=== PATIENT | female | born 1995 | race Caucasian/White ===

== ENCOUNTER 2017-01-05 14:57 | Emergency (ER) | payer SELFPAY ==
[~2017-01-05] VITALS: Ht 154.9 cm; Wt 41.5 kg
[~2017-01-05 14:57] MED LIST: CORTIS10A RIGHT EAR
[2017-01-05 15:00] VITALS: BP 117/69; PULSE 110; RESP 15; TEMP 97.6; O2SAT 100
--- NOTE | 2017-01-05 15:14 | PD ---
Physical Exam Date Seen by Provider: Jan 05, 2017 Time Seen by Provider: 15:12 Narrative 21 yo female here sent by urgent care for right leg cellulitis. Was seen at urgent care for infection to right leg for a few days. Told to come here for IV antibiotics and labs. No other medical issues reported. Comes with paper from urgent care. Vitals stable in triage with exception of tachycardia. Awaiting bed placement. Data Data Last Documented VS Vital Signs Date Time Temp Pulse Resp B/P (MAP) Pulse Ox O2 Delivery O2 Flow Rate FiO2 01/05/17 15:00 97.6 110 15 117/69 (85) 100 Orders Orders Complete Blood Count With Diff (01/05/17 15:11) Basic Metabolic Panel (Bmp) (01/05/17 15:11) Lactic Acid (01/05/17 15:11) MDM Medical Record Reviewed: Yes Supervised Visit with JASON: Clarence Kumar Jan 05, 2017 15:14
--- NOTE | 2017-01-05 15:40 | PD ---
HPI Chief Complaint: Wound/Suture/Staple Re-Check Time Seen by Provider: 15:30 Travel History International Travel<30 days: No Contact w/Intl Traveler<30days: No Traveled to known affect area: No History of Present Illness HPI 21-year-old white female presents to the emergency department status post I&D of abscess right mid calf. She says she went to [place] for I&D and they sent her to us for further treatment. She has not received any antibiotics for this. She states that the lesion has been present for about 2-3 days and has increased in size. Also states there is pain in the area. She denies fevers, chills, chest pain, shortness of breath. She denies any medical history or chronic medication use. [facility] Past Medical History Tetanus Vaccination: Unknown ?: Not Social History Alcohol Use: No Tobacco Use: No Substance Use: No Allergies-Medications (Allergen,Severity, Reaction): Coded Allergies: No Known Allergies (Unverified , 01/05/17) Reported Meds & Prescriptions Reported Meds & Active Scripts Active Bactrim DS (Sulfamethoxazole-Trimethoprim) 800-160 Mg Tab 1 Tab PO BID Cortisporin Otic (Neomycin/Polymyxin/Hydrocortisone) 10 Ml Susp 3-5 Drop RIGHT EAR Q6 7 Days FOR 7 DAYS Review of Systems Except as stated in HPI: all other systems reviewed are Neg Physical Exam Narrative 21-year-old white female with an abscess on lower right leg. GENERAL: Well-nourished, well-developed patient. SKIN: right posterior mid-calf with 1cm round lesion with minimal bleeding, no exudate. There is 2 cm of induration with mild erythema surrounding wound with mild TTP upon palpation. No lymphangiopathic spread noted. HEAD: Normocephalic. EYES: No scleral icterus. No injection or drainage. NECK: Supple, trachea midline. No JVD CARDIOVASCULAR: Regular rate and rhythm without murmurs, gallops, or rubs. RESPIRATORY: Breath sounds equal bilaterally. No accessory muscle use. MUSCULOSKELETAL: No cyanosis, or edema. BACK: Nontender without obvious deformity. No CVA tenderness. Data Data Last Documented VS Vital Signs Date Time Temp Pulse Resp B/P (MAP) Pulse Ox O2 Delivery O2 Flow Rate FiO2 01/05/17 16:56 101 113/66 (82) 100 01/05/17 16:22 Nasal Cannula 2.00 01/05/17 15:00 97.6 15 Orders Orders Wound Culture And Gram Stain (01/05/17 15:33) Sulfamet-Trimeth Ds 800-160 Mg (Bactrim (01/05/17 15:45) MDM Medical Decision Making Medical Screen Exam Complete: Yes Emergency Medical Condition: Yes Differential Diagnosis Right leg abscess versus insect bite versus cellulitis Narrative Course 21-year-old white female here for abscess to posterior right leg for 2-3 days. She says she went to [place] for treatment, they performed an I&D, and sent her to the emergency department for further treatment. She is here with her family. She does have full range of motion of her leg and can walk normally. She denies fevers, chills, shortness of breath, chest pain, abdominal pain. The abscess is approximately 1 cm round, with minimal bleeding, no exudate. The surrounding induration is approximately 2 cm with mild erythema. Unable to express exudate upon manipulation. No lymphangiopathic spread. Patient is a healthy 21-year-old white female and so we'll treat with outpatient antibiotics. Patient and family advised on course and when to return to the hospital. Diagnosis Primary Impression: Abscess of leg, right Referrals: Primary Care Physician Patient Instructions: Abscess Incision and Drainage (GEN), General Instructions Additional Instructions: Clean twice daily with clean water May use topical antibiotics Continue antibiotics until gone Follow up with Primary Care or return to the emergency department if wound worsens or persists. Scripts Sulfamethoxazole-Trimethoprim (Bactrim DS) 800-160 Mg Tab 1 TAB PO BID for Infection, #20 TAB 0 Refills Prov: Dhara Sutherland MD 01/05/17 Disposition: 01 DISCHARGE HOME Condition: Stable Beatriz Mccray Jan 05, 2017 15:40
[2017-01-05] MEDS ORDERED: SULFAMETHOXAZOLE-TRIMETHOPRIM DS 800-160 MG TAB PO ONE (15:45)
[2017-01-05] MEDS ORDERED: BACT800T5 PO ×2 (15:48→15:52)
[2017-01-05 16:22] VITALS: PULSE 107; O2SAT 100
[2017-01-05 16:56] VITALS: BP 113/66
== END 2017-01-05 16:57 | disposition home or self-care (01) ==
LOC: NEPC 14:57
DX: L02.415 Cutaneous abscess of right lower limb (principal); B95.62 Methicillin resistant Staphylococcus aureus infection as the cause of diseases classified elsewhere
CPT/HCPCS: 86403; 87070; 87186; 87205; 99283

== ENCOUNTER 2017-02-26 12:14 | Inpatient (IN) | payer MEDICAID ==
[~2017-02-26] VITALS: Ht 154.9 cm; Wt 41.9 kg
[2017-02-26] VITALS (7 sets, daily range): BP systolic 96–128; BP diastolic 50–70; PULSE 115–138; RESP 16–21; TEMP 98.2–102.9; O2SAT 99–100
[~2017-02-26 12:14] MED LIST changes: +BACT800T5 PO
--- NOTE | 2017-02-26 12:33 | PD ---
HPI Chief Complaint: Fever Time Seen by Provider: 12:32 Travel History International Travel<30 days: No Contact w/Intl Traveler<30days: No Traveled to known affect area: No History of Present Illness HPI 21 YO F presents to the ED via EMS for evaluation of a 3 day history of "not feeling well." On presentation the patient states that she has a sore in her groin x 4 days that is worsening and causing pain in her legs. She also states that she's been feeling feverish. She denies headache, dizziness, chest pain, palpitations, shortness of breath, cough, abdominal pain, dysuria. She denies risk of , states her LMP was "a few weeks ago." She denies alcohol or illicit drug use. She was seen at a urgent care where she was febrile and tachycardic. She was administered Tylenol and sent to the ED. [facility] Social History Alcohol Use: No Tobacco Use: No Substance Use: No Allergies-Medications (Allergen,Severity, Reaction): Coded Allergies: No Known Allergies (Unverified Allergy, Unknown, 02/26/17) Reported Meds & Prescriptions Reported Meds & Active Scripts Active Bactrim DS (Sulfamethoxazole-Trimethoprim) 800-160 Mg Tab 1 Tab PO BID Review of Systems Except as stated in HPI: all other systems reviewed are Neg Physical Exam Narrative GENERAL: Well-nourished, well-developed white female in no acute distress. SKIN: Focused skin assessment warm/dry.SKIN: There is an indurated area in the right groin which measures about 4 cm in diameter. It is fluctuant but there is no pointing or drainage. There is a zone of inflammation around it but no lymphangitis. HEAD: Normocephalic. EYES: No scleral icterus. No injection or drainage. NECK: Supple, trachea midline. No JVD or lymphadenopathy. CARDIOVASCULAR: Regular rate and rhythm without murmurs, gallops, or rubs. RESPIRATORY: Breath sounds clear and equal bilaterally. No accessory muscle use. GASTROINTESTINAL: Abdomen soft, non-tender, nondistended. Active bowel sounds. MUSCULOSKELETAL: No cyanosis, or edema. BACK: Nontender without obvious deformity. No CVA tenderness. Data Data Last Documented VS Vital Signs Date Time Temp Pulse Resp B/P (MAP) Pulse Ox O2 Delivery O2 Flow Rate FiO2 02/26/17 12:33 99.4 137 21 128/70 (89) 100 Room Air Orders Orders Complete Blood Count With Diff (02/26/17 12:19) Comprehensive Metabolic Panel (02/26/17 12:19) Urinalysis - C+S If Indicated (02/26/17 12:19) Lactic Acid Sepsis Protocol (02/26/17 12:19) Chest, Single Ap (02/26/17 12:19) Blood Culture (02/26/17 12:19) Ed Urine Pregnancytest Poc (02/26/17 12:19) Electrocardiogram (02/26/17 ) Abscess Culture And Gram Stain (02/26/17 12:49) Sodium Chlor 0.9% 1000 Ml Inj (Ns 1000 M (02/26/17 13:00) Piperacil-Tazo 4.5 Gm Premix (Zosyn 4.5 (02/26/17 13:15) Vancomycin Inj (Vancomycin Inj) (02/26/17 13:15) Lidocaine 1% Inj (50 Ml) (Xylocaine 1% I (02/26/17 13:40) Lidocaine 1% Inj (50 Ml) (Xylocaine 1% I (02/26/17 13:45) Urine Culture (02/26/17 13:45) Sodium Chlor 0.9% 1000 Ml Inj (Ns 1000 M (02/26/17 15:00) Labs Laboratory Tests Test 02/26/17 12:35 02/26/17 13:45 White Blood Count 16.0 TH/MM3 Red Blood Count 4.45 MIL/MM3 Hemoglobin 11.8 GM/DL Hematocrit 36.2 % Mean Corpuscular Volume 81.3 FL Mean Corpuscular Hemoglobin 26.5 PG Mean Corpuscular Hemoglobin Concent 32.6 % Red Cell Distribution Width 14.8 % Platelet Count 175 TH/MM3 Mean Platelet Volume 7.9 FL Neutrophils (%) (Auto) 97.4 % Lymphocytes (%) (Auto) 0.6 % Monocytes (%) (Auto) 1.6 % Eosinophils (%) (Auto) 0.2 % Basophils (%) (Auto) 0.2 % Neutrophils # (Auto) 15.6 TH/MM3 Lymphocytes # (Auto) 0.1 TH/MM3 Monocytes # (Auto) 0.3 TH/MM3 Eosinophils # (Auto) 0.0 TH/MM3 Basophils # (Auto) 0.0 TH/MM3 CBC Comment DIFF FINAL Differential Comment Blood Urea Nitrogen 12 MG/DL Creatinine 0.73 MG/DL Random Glucose 93 MG/DL Total Protein 6.4 GM/DL Albumin 3.3 GM/DL Calcium Level 8.1 MG/DL Alkaline Phosphatase 56 U/L Aspartate Amino Transf (AST/SGOT) 23 U/L Alanine Aminotransferase (ALT/SGPT) 13 U/L Total Bilirubin 0.7 MG/DL Sodium Level 134 MEQ/L Potassium Level 3.6 MEQ/L Chloride Level 104 MEQ/L Carbon Dioxide Level 17.0 MEQ/L Anion Gap 13 MEQ/L Estimat Glomerular Filtration Rate 103 ML/MIN Lactic Acid Level 2.2 mmol/L Urine Color YELLOW Urine Turbidity HAZY Urine pH 6.0 Urine Specific [place] 1.013 Urine Protein 30 mg/dL Urine Glucose (UA) NEG mg/dL Urine Ketones 40 mg/dL Urine Occult Blood MOD Urine Nitrite NEG Urine Bilirubin NEG Urine Urobilinogen LESS THAN 2.0 MG/DL Urine Leukocyte Esterase LARGE Urine RBC 15 /hpf Urine WBC /hpf Urine WBC Clumps FEW Urine Squamous Epithelial Cells 7 /hpf Urine Bacteria OCC /hpf Urine Mucus FEW /lpf Microscopic Urinalysis Comment CULTURE INDICATED MDM Medical Decision Making Medical Screen Exam Complete: Yes Emergency Medical Condition: Yes Differential Diagnosis Abscess versus cellulitis versus sepsis versus other Narrative Course 21 YO F presents to the ED via EMS for evaluation of a 3 day history of "not feeling well." On presentation the patient states that she has a sore x 4 days in her groin that is worsening and causing pain in her legs. She also states that she's been feeling feverish. She denies risk of , states her LMP was "a few weeks ago." She denies alcohol or illicit drug use. She was seen at a urgent care where she was febrile and tachycardic. She was administered Tylenol and sent to the ED. on arrival patient's heart rate 136, temp 99.4 orally. The patient has an abscess in the right groin but the exam is otherwise unremarkable. IV was established. Patient was administered a liter normal saline. Blood cultures were obtained. I&D of the abscess was performed. Please see my procedure note for details. 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 IV vancomycin and Zosyn was initiated. EKG: Rate 136. Normal axis. No ST changes. Reviewed by Dr. Leroy. CXR: No acute disease per radiology read. CBC: WBC 16.0 with left shift. CMP: Calcium 8.1. Lactic acid 2.2. UA: Hazy, large leukocyte Estrace, wbc's, few clumps, occasional bacteria. Culture pending. On recheck patient is sitting up in bed, eating. Heart rate continues to be in the 130s. A second fluid bolus was ordered. The patient meet sepsis criteria and will be admitted to the medicine service. She is agreeable to this plan. I spoke with Dr Winston who agrees to accept the patient to the medicine service under Dr. Swain. Please see medicine notes for disposition. Procedures Procedure Narrative INCISION AND DRAINAGE OF ABSCESS: The area was prepped and was sterilely draped. A subcutaneous wheal of 1% Xylocaine with a total number 4mL was used to anesthetize the area properly. A number 11 scalpel was used to make a 1.25- cm incision across the area of the abscess. Cultures were obtained. The abscess was drained, complex loculations were broken down and the wounds was irrigated with normal saline. Quarter inch iodoform packing was placed in the wound. Sterile dressing applied. Patient advised to have packing removed in two days. Sepsis Criteria SIRS Criteria (2 or more): Heart rate over 90, WBC > 18858, < 4000 or > 10% bands Sepsis Criteria (SIRS+source): Infect source susp/known Chloé Sawant Feb 26, 2017 12:33
--- NOTE | 2017-02-26 12:50 | RADRPT ---
EXAM DATE/TIME: 02/26/2017 12:40 [place] COMPARISON: No previous studies available for comparison. INDICATIONS : Fever, short of breath MEDICAL HISTORY : possible infection right groin SURGICAL HISTORY : oral surgery ENCOUNTER: Initial ACUITY: 2 days PAIN SCORE: 0/10 LOCATION: Bilateral chest FINDINGS: A single view of the chest demonstrates the lungs to be symmetrically aerated without evidence of mas s, infiltrate or effusion. There is hyperaeration of the lung gallo. The cardiomediastinal contours are unremarkable. Osseous structures are intact. CONCLUSION: No acute disease. Suraj Murray MD on February 26, 2017 at 12:48 Board Certified Radiologist. This report was verified electronically.
[2017-02-26] MEDS ORDERED: LIDOCAINE HCL 1% 30 ML VIAL INFIL ONE (13:00)
[2017-02-26] MEDS ORDERED: SODIUM CHLOR 0.9% 1000 ML INJ 1,000 ML IV ONE ×2 (13:00→15:00)
[2017-02-26] MEDS ORDERED: ACETAMINOPHEN 500 MG CPLT PO ONE (13:00)
[2017-02-26 13:01] LABS: AUTOMATED NEUTROPHIL # 15.6 TH/MM3 (1.8-7.7); BASOPHIL % 0.2 % (0.0-2.0); EOSINOPHIL % 0.2 % (0.0-4.0); HEMATOCRIT 36.2 % (35.0-46.0); HEMO FLAGS DIFF FINAL; LYMPH % 0.6 % (9.0-44.0); LYMPHOCYTE # 0.1 TH/MM3 (1.0-4.8); MEAN CELL VOLUME 81.3 FL (80.0-100.0); MEAN CORPUSCULAR HEMOGLOBIN 26.5 PG (27.0-34.0); MEAN CORPUSCULAR HGB CONC 32.6 % (32.0-36.0); MONO % 1.6 % (0.0-8.0); NEUT % 97.4 % (16.0-70.0); PLATELET COUNT 175 TH/MM3 (150-450); RED BLOOD COUNT 4.45 MIL/MM3 (4.00-5.30); RED CELL DISTRIBUTION WIDTH 14.8 % (11.6-17.2)
[2017-02-26] MEDS ORDERED: VANCOMYCIN INJ 800 MG in SODIUM CHLOR 0.9% 250 ML INJ 250 ML IV STA (13:15)
[2017-02-26] MEDS ORDERED: PIPERACIL-TAZO 4.5 GM PREMIX 100 ML IV STA (13:15)
[2017-02-26 13:23] LABS: ALT (GPT) 13 U/L (9-42)
[2017-02-26 13:25] LABS: ALKALINE PHOSPHATASE 56 U/L (45-117); TOTAL BILIRUBIN ADULT 0.7 MG/DL (0.2-1.0)
[2017-02-26 13:27] LABS: ANION GAP 13 MEQ/L (5-15); AST (GOT) 23 U/L (16-38); BLOOD UREA NITROGEN 12 MG/DL (7-18); CHLORIDE 104 MEQ/L (98-107); GLOMERULAR FILTRATION RATE 103 ML/MIN (>89); SODIUM (NA) 134 MEQ/L (136-145)
[2017-02-26 13:29] LABS: POTASSIUM 3.6 MEQ/L (3.5-5.1)
[2017-02-26] MEDS ORDERED: LIDOCAINE HCL 1% 50 ML VIAL ONE (13:40)
[2017-02-26] MEDS ORDERED: LIDOCAINE HCL 1% 50 ML VIAL INFIL ONE (13:45)
[2017-02-26 14:19] LABS: BACTERIA, URINE OCC /hpf; BLOOD, URINE MOD (NEG); COMMENT (UR) CULTURE INDICATED; CULTURE IF INDICATED CULTURE INDICATED; GLUCOSE,URINE NEG (NEG); KETONE, URINE 40 mg/dL (NEG); MUCUS URINE FEW /lpf (OCC); NITRITE,URINE NEG (NEG); SQUAMOUS EPITHELIAL CELL URINE 7 /hpf (0-5); URINE COLOR YELLOW (YELLW/STRAW)
[2017-02-26 14:50] LABS: LACTIC ACID GHOST NOT REPORTABLE
[2017-02-26] MEDS: SODIUM CHLOR 0.9% 1000 ML INJ 1,000 ML IV SCH (15:12)
[2017-02-26] MEDS ORDERED: ONDANSETRON HCL 4 MG/2 ML VIAL IVP PRN (15:15)
[2017-02-26] MEDS ORDERED: ACETAMINOPHEN 325 MG TAB PO PRN (15:15)
[2017-02-26] MEDS ORDERED: BISACODYL 10 MG SUPP RECTAL PRN (15:15)
[2017-02-26] MEDS ORDERED: LACTULOSE SYRUP 20 GM/30 ML CUP PO PRN (15:15)
[2017-02-26] MEDS ORDERED: SENNOSIDES 8.6 MG TAB PO PRN (15:15)
[2017-02-26] MEDS ORDERED: NALOXONE HCL 0.4 MG/ML AMP IV PUSH PRN (15:15)
[2017-02-26] MEDS ORDERED: ZOLPIDEM TARTRATE 5 MG TAB PO PRN (15:15)
[2017-02-26] MEDS ORDERED: SODIUM CHLORIDE 0.9% FLUSH 10 ML FLUSH IV FLUSH PRN (15:15)
[2017-02-26] MEDS ORDERED: MAGNESIUM HYDROXIDE SUSP 30 ML CUP PO PRN (15:15)
--- NOTE | 2017-02-26 15:15 | HHI.HP ---
[facility] Service Family Medicine Primary Care Physician No Primary Care Physician Admission Diagnosis Sepsis, right groin abscess, UTI Diagnoses: International Travel<30 Days: No Contact w/Intl Traveler<30days: No Known Affected Area: No History of Present Illness 21-year-old female with no major past medical history presenting with right groin pain and skin swelling for the last 4 days. She went to urgent care for this problem a couple days ago and was diagnosed with an ingrown hair follicle ( she had shaved) plus cellulitis and was given Bactrim. However, the swelling got worse, and she also developed fever. This prompted her to come back to the ER and seek care. She denies dysuria, urinary frequency. Endorses vaginal discharge which she describes as whitish in color, denies odor or itching. Endorses dyspareunia. Last sexual activity 2 weeks ago. Sexually active with one partner, male, uses condoms consistently. (Kosta Winston MD R2) Review of Systems Constitutional: COMPLAINS OF: Fever, Chills, DENIES: Fatigue Eyes: DENIES: Eye pain Ears, nose, mouth, throat: DENIES: Ear Pain, Sinus Pain, Odynophagia Respiratory: DENIES: Cough, Wheezing, Shortness of breath Cardiovascular: DENIES: Chest pain, Palpitations, Dyspnea on Exertion Gastrointestinal: DENIES: Abdominal pain, Black stools, Bloody stools, Diarrhea , Nausea, Vomiting Genitourinary: COMPLAINS OF: Dyspareunia, Vaginal discharge, DENIES: Abnormal vaginal bleeding, Urinary frequency, Urgency, Hematuria, Dysuria Musculoskeletal: DENIES: Joint pain, Muscle aches Integumentary: COMPLAINS OF: Rash, DENIES: Pruritus Hematologic/lymphatic: DENIES: Bruising, Lymphadenopathy Immunologic/allergic: DENIES: Urticaria Neurologic: DENIES: Headache, Localized weakness, Paresthesias Psychiatric: DENIES: Anxiety, Depression (Kosta Winston MD R2) Past Family Social History Past Medical History None Past Surgical History None Reported Medications Takes no medications (Kosta Winston MD R2) Allergies: Coded Allergies: No Known Allergies (Unverified Allergy, Unknown, 02/26/17) Family History MGM has heart disease. Parents healthy. Social History Never smoker, does not drink, does not do drugs. See [facility] for sexual history. (Kosta Winston MD R2) Physical Exam Vital Signs Vital Signs Date Time Temp Pulse Resp B/P (MAP) Pulse Ox O2 Delivery O2 Flow Rate FiO2 02/26/17 12:33 99.4 137 21 128/70 (89) 100 Room Air 02/26/17 12:33 137 21 100 Room Air 02/26/17 12:26 99.2 136 21 128/70 (89) 100 Physical Exam GENERAL: Well-developed, well-nourished young adult white female sitting up in bed in no acute distress SKIN: No rashes, ecchymoses or lesions. Cool and dry. R groin with ~ 1cm wound from I&D packed with iodoform gauze. Mild erythema surrounding. Non-tender. No other areas of fluctuance, no purulent drainage. HEAD: NC/AT EYES: PERRL. EOMI. No conjunctival injection or drainage. ENT: MMM, OP without erythema, tonsillar swelling, or exudate. NECK: Supple, no lymphadenopathy. CARDIOVASCULAR: Tachycardic, regular rhythm. Normal S1/S2. No MRG RESPIRATORY: CTAB. No crackles or wheezes. GASTROINTESTINAL: Abdomen soft, non-distended, non-tender. No hepato- splenomegaly or palpable masses. GENITOURINARY: Exam performed with telemarketing sales representative present. Normal external genitalia. Cervix visualized with speculum and appearing mildly erythematous with some scant purulent discharge coming out of the os. No friability. No cervical motion tenderness. MUSCULOSKELETAL: Extremities without clubbing, cyanosis, or edema. No CVA tenderness. NEUROLOGICAL: Awake and alert. Cranial nerves II through XII grossly intact. Moves all extremities without difficulty. Normal speech. Laboratory Laboratory Tests Test 02/26/17 12:35 02/26/17 13:45 White Blood Count 16.0 Red Blood Count 4.45 Hemoglobin 11.8 Hematocrit 36.2 Mean Corpuscular Volume 81.3 Mean Corpuscular Hemoglobin 26.5 Mean Corpuscular Hemoglobin Concent 32.6 Red Cell Distribution Width 14.8 Platelet Count 175 Mean Platelet Volume 7.9 Neutrophils (%) (Auto) 97.4 Lymphocytes (%) (Auto) 0.6 Monocytes (%) (Auto) 1.6 Eosinophils (%) (Auto) 0.2 Basophils (%) (Auto) 0.2 Neutrophils # (Auto) 15.6 Lymphocytes # (Auto) 0.1 Monocytes # (Auto) 0.3 Eosinophils # (Auto) 0.0 Basophils # (Auto) 0.0 CBC Comment DIFF FINAL Differential Comment Blood Urea Nitrogen 12 Creatinine 0.73 Random Glucose 93 Total Protein 6.4 Albumin 3.3 Calcium Level 8.1 Alkaline Phosphatase 56 Aspartate Amino Transf (AST/SGOT) 23 Alanine Aminotransferase (ALT/SGPT) 13 Total Bilirubin 0.7 Sodium Level 134 Potassium Level 3.6 Chloride Level 104 Carbon Dioxide Level 17.0 Anion Gap 13 Estimat Glomerular Filtration Rate 103 Lactic Acid Level 2.2 Urine Color YELLOW Urine Turbidity HAZY Urine pH 6.0 Urine Specific [place] 1.013 Urine Protein 30 Urine Glucose (UA) NEG Urine Ketones 40 Urine Occult Blood MOD Urine Nitrite NEG Urine Bilirubin NEG Urine Urobilinogen LESS THAN 2.0 Urine Leukocyte Esterase LARGE Urine RBC 15 Urine WBC Urine WBC Clumps FEW Urine Squamous Epithelial Cells 7 Urine Bacteria OCC Urine Mucus FEW Microscopic Urinalysis Comment CULTURE INDICATED Date/Time Source Procedure Growth Status 02/26/17 12:35 Blood Peripheral Aerobic Blood Culture Pending Received 02/26/17 12:35 Blood Peripheral Anaerobic Blood Culture Pending Received 02/26/17 13:45 Urine Clean Catch Urine Culture Pending Received 02/26/17 14:00 Abscess Groin Gram Stain Pending Received 02/26/17 14:00 Abscess Groin Wound Culture Pending Received (Kosta Winston MD R2) Result Diagram: 02/26/17 1235 02/26/17 1235 Imaging Last Impressions Chest X-Ray 02/26/17 1219 Signed Impressions: Service Date/Time: February 12:40 - CONCLUSION: No acute disease. Suraj Murray MD (Kosta Winston MD R2) Caprini VTE Risk Assessment Caprini VTE Risk Assessment: No/Low Risk (score <= 1) Caprini Risk Assessment Model Point Value = 1 Point Value = 2 Point Value = 3 Point Value = 5 Age 41-60 Minor surgery BMI > 25 kg/m2 Swollen legs Varicose veins or History of unexplained or recurrent spontaneous Oral contraceptives or hormone replacement Sepsis (< 1 month) Serious lung disease, including pneumonia (< 1 month) Abnormal pulmonary function Acute myocardial infarction Congestive heart failure (< 1 month) History of inflammatory bowel disease Medical patient at bed rest Age 61-74 Arthroscopic surgery Major open surgery (> 45 min) Laparoscopic surgery (> 45 min) Malignancy Confined to bed (> 72 hours) Immobilizing plaster cast Central venous access Age >= 75 History of VTE Family history of VTE Factor V Leiden Prothrombin [id number] Lupus anticoagulant Anticardiolipin antibodies Elevated serum homocysteine Heparin-induced thrombocytopenia Other congenital or acquired thrombophilia Stroke (< 1 month) Elective arthroplasty Hip, pelvis, or leg fracture Acute spinal cord injury (< 1 month) Prophylaxis Regimen Total Risk Factor Score Risk Level Prophylaxis Regimen 0-1 Low Early ambulation 2 Moderate Order ONE of the following: *Sequential Compression Device (SCD) *Heparin 5000 units SQ BID 3-4 Higher Order ONE of the following medications: *Heparin 5000 units SQ TID *Enoxaparin/Lovenox 40 mg SQ daily (WT < 150 kg, CrCl > 30 mL/min) *Enoxaparin/Lovenox 30 mg SQ daily (WT < 150 kg, CrCl > 10-29 mL/min) *Enoxaparin/Lovenox 30 mg SQ BID (WT < 150 kg, CrCl > 30 mL/min) AND/OR *Sequential Compression Device (SCD) 5 or more Highest Order ONE of the following medications: *Heparin 5000 units SQ TID (Preferred with Epidurals) *Enoxaparin/Lovenox 40 mg SQ daily (WT < 150 kg, CrCl > 30 mL/min) *Enoxaparin/Lovenox 30 mg SQ daily (WT < 150 kg, CrCl > 10-29 mL/min) *Enoxaparin/Lovenox 30 mg SQ BID (WT < 150 kg, CrCl > 30 mL/min) AND *Sequential Compression Device (SCD) (Kosta Winston MD R2) Assessment and Plan Assessment and Plan Previously healthy sexually active 21 yo female presenting with: (Kosta Winston MD R2) Attending Attestation THIS CASE WAS DISCUSSED WITH THE RESIDENT PHYSICIANS. I HAVE REVIEWED THE RECORD AND AGREE WITH THE ABOVE NOTE AND PLAN OF CARE WAS DISCUSSED. I HAVE AUTHORIZED THE ORDER FOR ADMISSION TO AN IN-PATIENT STATUS. (Mag Jones MD) Problem List: (1) Sepsis ICD Codes: A41.9 - Sepsis, unspecified organism Plan: Leukocytosis plus tachycardia and fever insetting of known right groin infection Right groin abscess status post incision and drainage Urinalysis also suggestive of urinary tract infection Initial lactic acid 2.2 - Admit to inpatient - S/P normal saline 1000 ML bolus - Given vancomycin and Zosyn in the emergency department - Continue vancomycin for abscess coverage, Rocephin for UTI coverage - Follow up urine, wound culture - Follow up blood culture - Check gonorrhea and chlamydia, wet prep as below - Repeat lactic acid - Normal saline at 100 mL/h - Tylenol as needed for pain or fever (2) Abscess of right groin ICD Codes: L02.214 - Cutaneous abscess of groin Plan: See above plan (3) UTI (urinary tract infection) ICD Codes: N39.0 - Urinary tract infection, site not specified Plan: Currently asymptomatic, but urinalysis with innumerable white blood cells and several clumps - See above plan for sepsis (4) Vaginal discharge ICD Codes: N89.8 - Other specified noninflammatory disorders of vagina Plan: Pelvic exam suggestive of possible cervicitis; patient is sexually active with one male partner - Check wet prep, gonorrhea and chlamydia swab - Check HIV status (5) FEN/PPX Plan: Fluids: As above Electrolytes: Monitor and replace PRN Nutrition: Diet regular DVT prophylaxis: None indicated this patient is low risk CODE STATUS: Full code (Kosta Winston MD R2) Physician Certification 2 Midnight Certification Type: Admission for Inpatient Services Order for Inpatient Services The services are ordered in accordance with Medicare regulations or non- Medicare payer requirements, as applicable. In the case of services not specified as inpatient-only, they are appropriately provided as inpatient services in accordance with the 2-midnight benchmark. Estimated LOS (days): 2 days is the estimated time the patient will need to remain in the hospital, assuming treatment plan goals are met and no additional complications. Post-Hospital Plan: Home (Kosta Winston MD R2) 2 Midnight Certification Type: Admission for Inpatient Services Post-Hospital Plan: Home (Mag Jones MD) Problem Qualifiers (1) Sepsis: Qualified Codes: A41.9 - Sepsis, unspecified organism Kosta Winston MD R2 Feb 26, 2017 15:15 Mag Jones MD Feb 27, 2017 08:23
[2017-02-26 19:38] LABS: CHLAMYDIA PCR NOT DETECTED (NOT DETECT); NEISSERIA PCR NOT DETECTED (NOT DETECT)
[2017-02-26] MEDS: DOCUSATE SODIUM 50 MG/SENNA 8.6 MG TAB PO SCH (19:46)
[2017-02-26] MEDS: SODIUM CHLORIDE 0.9% FLUSH 10 ML FLUSH IV FLUSH SCH (19:46)
[2017-02-26] MEDS ORDERED: Vancomycin Consult Pharmacy 1 EA OTHER SCH (20:30)
[2017-02-27] VITALS (7 sets, daily range): BP systolic 105–127; BP diastolic 50–79; PULSE 75–138; RESP 16–20; TEMP 98–99.9; O2SAT 98–100
[2017-02-27] MEDS: SODIUM CHLOR 0.9% 1000 ML INJ 1,000 ML IV SCH ×2 (01:12→12:19)
[2017-02-27] MEDS: cefTRIAXone INJ 2,000 MG in SODIUM CHLORIDE 0.9% INJ 100 ML IV SCH (05:00)
[2017-02-27] MEDS: VANCOMYCIN INJ 700 MG in SODIUM CHLOR 0.9% 250 ML INJ 250 ML IV SCH ×2 (05:39→16:11)
[2017-02-27 06:10] LABS: AUTOMATED NEUTROPHIL # 12.7 TH/MM3 (1.8-7.7); BASOPHIL % 0.1 % (0.0-2.0); EOSINOPHIL # 0.4 TH/MM3 (0-0.4); EOSINOPHIL % 2.8 % (0.0-4.0); HEMATOCRIT 30.8 % (35.0-46.0); HEMO FLAGS DIFF FINAL; LYMPH % 1.7 % (9.0-44.0); LYMPHOCYTE # 0.2 TH/MM3 (1.0-4.8); MEAN CELL VOLUME 81.4 FL (80.0-100.0); MEAN CORPUSCULAR HGB CONC 33.1 % (32.0-36.0); MONO % 3.7 % (0.0-8.0); NEUT % 91.7 % (16.0-70.0); PLATELET COUNT 155 TH/MM3 (150-450); RED BLOOD COUNT 3.78 MIL/MM3 (4.00-5.30); RED CELL DISTRIBUTION WIDTH 14.8 % (11.6-17.2); WHITE BLOOD COUNT 13.9 TH/MM3 (4.0-11.0)
[2017-02-27 06:39] LABS: BICARBONATE 19.7 MEQ/L (21.0-32.0); POTASSIUM 3.1 MEQ/L (3.5-5.1)
[2017-02-27 06:53] LABS: CALCIUM-PROTEIN CORRECTED 8.3 MG/DL (8.5-10.1)
[2017-02-27] MEDS: DOCUSATE SODIUM 50 MG/SENNA 8.6 MG TAB PO SCH ×2 (07:48→21:21)
[2017-02-27] MEDS: SODIUM CHLORIDE 0.9% FLUSH 10 ML FLUSH IV FLUSH SCH ×2 (07:48→21:21)
--- NOTE | 2017-02-27 12:17 | HHI.FPPN ---
Problem Problem List: (1) Sepsis (2) Abscess of right groin (3) Bacterial vaginosis (4) UTI (urinary tract infection) Subjective Subjective 21 year old woman was admitted through the ED for sepsis likely stemming from the right groin abscess. She was having increased in pain and swelling in the area and not feeling well prior to admission. In the ED this lesion was incised and drained and the wound was packed. Cultures are pending. The patient this morning feels better. She states she has limited pain in that area and she has been noticing it is draining onto the bandage. She states she overall is feeling better. She denies fevers/chills/SOB or CP Please see the resident Hand P for additional PMH/PSH/FH/SOCIAL history that was reviewed. ROS negative except as above Hospital Objective Objective Last Impressions Chest X-Ray 02/26/17 1219 Signed Impressions: Service Date/Time: , February 26, 2017 12:40 - CONCLUSION: No acute disease. Suraj Murray MD Laboratory Tests - Abnormals Test 02/26/17 12:35 02/26/17 13:45 02/26/17 16:15 02/26/17 19:44 White Blood Count 16.0 TH/MM3 Mean Corpuscular Hemoglobin 26.5 PG Neutrophils (%) (Auto) 97.4 % Lymphocytes (%) (Auto) 0.6 % Neutrophils # (Auto) 15.6 TH/MM3 Lymphocytes # (Auto) 0.1 TH/MM3 Albumin 3.3 GM/DL Calcium Level 8.1 MG/DL Sodium Level 134 MEQ/L Carbon Dioxide Level 17.0 MEQ/L Lactic Acid Level 2.2 mmol/L Urine Turbidity HAZY Urine Protein 30 mg/dL Urine Ketones 40 mg/dL Urine Occult Blood MOD Urine Leukocyte Esterase LARGE Urine RBC 15 /hpf Urine WBC Clumps FEW Urine Bacteria OCC /hpf Urine Mucus FEW /lpf Clue Cells (Wet Prep) PRESENT Test 02/26/17 20:52 02/27/17 04:08 Lactic Acid Level 2.6 mmol/L White Blood Count 13.9 TH/MM3 Red Blood Count 3.78 MIL/MM3 Hemoglobin 10.2 GM/DL Hematocrit 30.8 % Neutrophils (%) (Auto) 91.7 % Lymphocytes (%) (Auto) 1.7 % Neutrophils # (Auto) 12.7 TH/MM3 Lymphocytes # (Auto) 0.2 TH/MM3 Random Glucose 116 MG/DL Total Protein 5.3 GM/DL Calcium Level 7.3 MG/DL Potassium Level 3.1 MEQ/L Chloride Level 110 MEQ/L Carbon Dioxide Level 19.7 MEQ/L Protein Corrected Calcium 8.3 MG/DL Vital Signs 02/26/17 02/26/17 02/26/17 02/26/17 12:26 12:33 12:33 16:25 Temp 99.2 99.4 Pulse 136 137 137 Resp 21 21 21 B/P (MAP) 128/70 (89) 128/70 (89) 112/52 (72) Pulse Ox 100 100 100 O2 Delivery Room Air Room Air 02/26/17 02/26/17 02/26/17 02/26/17 16:25 17:30 19:34 21:56 Temp 99.0 98.2 102.9 98.8 Pulse 128 137 138 Resp 18 18 16 B/P (MAP) 112/52 (72) 111/53 (72) 96/50 (65) Pulse Ox 100 100 99 02/26/17 02/27/17 02/27/17 02/27/17 23:23 03:50 04:22 07:56 Temp 98.4 99.9 Pulse 115 138 133 115 Resp 16 16 B/P (MAP) 102/51 (68) 105/50 (68) Pulse Ox 100 98 02/27/17 02/27/17 08:00 12:07 Temp 98.2 98.8 Pulse 114 106 Resp 18 20 B/P (MAP) 123/61 (81) 127/59 (81) Pulse Ox 100 100 Physical exam O. CONSTITUTIONAL/GEN: normally nourished, in NAD. EYES: conjunctiva normal, PERRLA, EOMI. ENT: Mouth and pharynx normal. NECK: thyroid midline, carotids symmetrical. LUNGS: clear A-P, respiratory effort is normal. CARDIOVASCULAR: RR without murmur or gallop. No significant edema. GI/ABD: soft without masses, without organomegaly. : right groin abscess -- iodoform gauze present, no other pockets of fluctuance noted, no surrounding redness. No groin LAD NEURO: No focal deficits. Gait is normal SKIN: color normal, no rashes noted. HEME/LYMPH: no bruising, petechia or significant adenopathy MUSC: back is normal in appearance. Extremities are normal in appearance. PSYCH/MENTAL STATUS: Alert and oriented x 3. Assessment Assessment: (1) Sepsis Plan: At this time she clinically appears better. Continue her current abx ( rocephin and Vanc) and follow the cultures to tailor her antibiotic regimen. She did have a fever overnight but her white count has improved. Continue her IVF as well. (2) Abscess of right groin Plan: likely the source of the sepsis. Continue the Vanc as she has h/o MRSA and failed outpatient Bactrim for this abscess and follow the culture (3) UTI (urinary tract infection) Plan: Cont the rocephin and follow the culture (4) Bacterial vaginosis Plan: Plan to treat with metronidazole PV on discharge Assessment 21 year old with sepsis likely from groin mass with high suspicion for MRSA, also with UTI and BV that is clinically improving. Continue her current treatment plan as outlined above. PLAN PLAN Patient seen and dw the resident team -- Dr. Winston and Dr. Negrito Jones,Mag Longo MD Feb 27, 2017 12:17
[2017-02-27] MEDS ORDERED: POTASSIUM CHLORIDE 10 MEQ CONTROLLED RELEASE TAB PO ONE (15:15)
--- NOTE | 2017-02-27 16:44 | EKG ---
Date Performed: 02/26/2017 Time Performed: 12:52:40 PTAGE: 21 years EKG: SINUS TACHYCARDIA OTHERWISE WITHIN NORMAL LIMITS ABNORMAL RHYTHM ECG NO PREVIOUS TRACING DOCTOR: Ridge Lim Interpretating Date/Time 02/27/2017 16:42:37
[2017-02-28] VITALS: BP 126/67; PULSE 97; RESP 20; TEMP 98.4; O2SAT 100
[2017-02-28] MEDS: SODIUM CHLOR 0.9% 1000 ML INJ 1,000 ML IV SCH (00:29)
[2017-02-28 04:00] VITALS: BP 123/58; PULSE 97; RESP 18; TEMP 97.3; O2SAT 99
[2017-02-28] MEDS ORDERED: PHARMACY ORDERED LAB ONE (04:45)
[2017-02-28] MEDS: VANCOMYCIN INJ 700 MG in SODIUM CHLOR 0.9% 250 ML INJ 250 ML IV SCH (05:43)
[2017-02-28] MEDS: cefTRIAXone INJ 2,000 MG in SODIUM CHLORIDE 0.9% INJ 100 ML IV SCH (05:43)
[2017-02-28 07:57] LABS: HEMATOCRIT 32.3 % (35.0-46.0); MEAN CELL VOLUME 81.4 FL (80.0-100.0); MEAN CORPUSCULAR HEMOGLOBIN 27.3 PG (27.0-34.0); MEAN CORPUSCULAR HGB CONC 33.5 % (32.0-36.0); PLATELET COUNT 168 TH/MM3 (150-450); RED BLOOD COUNT 3.97 MIL/MM3 (4.00-5.30); REVIEW FLAG FINAL; WHITE BLOOD COUNT 4.9 TH/MM3 (4.0-11.0)
[2017-02-28 08:00] VITALS: BP 123/80; PULSE 100; PULSE 105; RESP 20; TEMP 98.2; O2SAT 99
[2017-02-28 08:20] LABS: POTASSIUM 3.7 MEQ/L (3.5-5.1)
--- NOTE | 2017-02-28 09:17 | HHI.DCPOC ---
Discharge Care Plan Diagnosis: (1) Abscess of right groin (2) Bacterial vaginosis Goals to Promote Your Health * To prevent worsening of your condition and complications * To maintain your health at the optimal level Directions to Meet Your Goals Obtain your antibiotic from [facility] (it will be free) Antibiotic script is for 14 days, but you only need to take it for 10 days ( 20 doses) Take your medications as prescribed Follow your dietary instruction Follow activity as directed Keep your appointments as scheduled Take your immunizations and boosters as scheduled If your symptoms worsen call your PCP, if no PCP go to Urgent Care Center or Emergency Room Smoking is Dangerous to Your Health. Avoid second hand smoke Call the 24-hour hour crisis hotline for domestic abuse at Kosta Winston MD R2 Feb 28, 2017 09:17
--- NOTE | 2017-02-28 09:18 | HHI.FPPN ---
Subjective Remarks Feeling well, comfortable. No acute events overnight. VSS. Wants to go home. Still having mild groin pain but well-controlled. (Kosta Winston MD R2) Objective Vitals Vital Signs Date Time Temp Pulse Resp B/P (MAP) Pulse Ox O2 Delivery O2 Flow Rate FiO2 02/28/17 04:00 97.3 97 18 123/58 (79) 99 02/28/17 00:00 98.4 97 20 126/67 (86) 100 02/27/17 20:00 98.0 100 20 119/79 (92) 100 02/27/17 20:00 102 02/27/17 16:00 98.8 75 18 116/57 (76) 100 02/27/17 12:07 98.8 106 20 127/59 (81) 100 I/O 02/27/17 02/27/17 02/27/17 02/28/17 02/28/17 02/28/17 07:00 15:00 23:00 07:00 15:00 23:00 Intake Total 240 ml 590 ml 2558 ml Output Total 650 ml 1000 ml Balance -410 ml -410 ml 2558 ml Intake Oral 240 ml 240 ml 780 ml IV Total 350 ml 1778 ml Output Urine Total 650 ml 1000 ml # Voids 7 # Bowel Movements 0 1 (Kosta Winston MD R2) Result Diagram: 02/28/17 0740 02/28/17 0740 Imaging Last Impressions Chest X-Ray 02/26/17 1219 Signed Impressions: Service Date/Time: February 12:40 - CONCLUSION: No acute disease. Suraj Murray MD Objective Remarks Gen.: Well-developed, well-nourished young adult female sitting up in bed in no acute distress Lungs: Clear to auscultation bilaterally, no crackles or wheezes Heart: Normal rate, regular rhythm, normal S1/S2, no murmur MSK: No cyanosis or edema Abdomen: Soft, nondistended, nontender Groin: Right groin with stable 2 cm incision, packed with iodoform gauze. Iodoform gauze was removed, and synchronous drainage expressed. Wound was closed with Steri-Strips and covered with dressing. (Kosta Winston MD R2) A/P Assessment and Plan Previously healthy sexually active 21 yo female presenting with: (Kosta Winston MD R2) Attending Attestation Case reviewed and discussed with the resident team. Agree with plan of care as discussed with me and documented in the resident note. (Mag Jones MD) Problem List: (1) Sepsis ICD Codes: A41.9 - Sepsis, unspecified organism Status: Resolved Plan: Leukocytosis plus tachycardia and fever insetting of known right groin infection Right groin abscess status post incision and drainage on 02/26 Wound culture - MRSA Blood Cx - NGTD x2d UCx growing 50-100,000 CFU/mL mixed GPC, likely contaminant Initial lactic acid 2.2, repeat 1.5 - Discharge home with Bactrim DS 1 tab PO BID for 10 days - Check gonorrhea and chlamydia, wet prep as below - Tylenol as needed for pain or fever (2) Abscess of right groin ICD Codes: L02.214 - Cutaneous abscess of groin Plan: See above plan (3) UTI (urinary tract infection) ICD Codes: N39.0 - Urinary tract infection, site not specified Plan: UA with contaminants as above - D/C rocephin (4) Vaginal discharge ICD Codes: N89.8 - Other specified noninflammatory disorders of vagina Plan: Pelvic exam suggestive of possible cervicitis; patient is sexually active with one male partner GC/Chlamydia negative Wet prep with clue cells HIV negative - Counselled on safe sex - Home with topical Flagyl vaginally HS x 7 days (Kosta Winston MD R2) Problem Qualifiers (1) Sepsis: Qualified Codes: A41.9 - Sepsis, unspecified organism Kosta Winston MD R2 Feb 28, 2017 09:18 Mag Jones MD Mar 01, 2017 07:26
[2017-02-28] MEDS: DOCUSATE SODIUM 50 MG/SENNA 8.6 MG TAB PO SCH (09:33)
[2017-02-28] MEDS: SODIUM CHLORIDE 0.9% FLUSH 10 ML FLUSH IV FLUSH SCH (09:34)
[2017-02-28] MEDS ORDERED: BACT800T5 PO (11:30)
[2017-02-28] MEDS ORDERED: METR0.7512 VAGINAL (11:46)
--- NOTE | 2017-02-28 11:52 | HHI.DS ---
Discharge Summary Admission Date Feb 26, 2017 at 2:58 pm Discharge Date: Feb 28, 2017 Admitting Diagnosis Sepsis, right groin abscess, UTI (1) Sepsis Diagnosis: Principal ICD Codes: A41.9 - Sepsis, unspecified organism Status: Resolved (2) Abscess of right groin Diagnosis: Principal ICD Codes: L02.214 - Cutaneous abscess of groin (3) Bacterial vaginosis Diagnosis: Secondary ICD Codes: N76.0 - Acute vaginitis; B96.89 - Other specified bacterial agents as the cause of diseases classified elsewhere Procedures I&D groin abscess - 02/26/17 Brief History 21-year-old female with no major past medical history presenting with right groin pain and skin swelling for the last 4 days. She went to urgent care for this problem a couple days ago and was diagnosed with an ingrown hair follicle ( she had shaved) plus cellulitis and was given Bactrim. However, the swelling got worse, and she also developed fever. This prompted her to come back to the ER and seek care. She denies dysuria, urinary frequency. Endorses vaginal discharge which she describes as whitish in color, denies odor or itching. Endorses dyspareunia. Last sexual activity 2 weeks ago. Sexually active with one partner, male, uses condoms consistently. CBC/BMP: 02/28/17 0740 02/28/17 0740 Significant Findings Laboratory Tests Test 02/26/17 12:35 02/26/17 13:45 02/26/17 16:15 02/26/17 19:44 White Blood Count 16.0 TH/MM3 (4.0-11.0) Mean Corpuscular Hemoglobin 26.5 PG (27.0-34.0) Neutrophils (%) (Auto) 97.4 % (16.0-70.0) Lymphocytes (%) (Auto) 0.6 % (9.0-44.0) Neutrophils # (Auto) 15.6 TH/MM3 (1.8-7.7) Lymphocytes # (Auto) 0.1 TH/MM3 (1.0-4.8) Albumin 3.3 GM/DL (3.4-5.0) Calcium Level 8.1 MG/DL (8.5-10.1) Sodium Level 134 MEQ/L (136-145) Carbon Dioxide Level 17.0 MEQ/L (21.0-32.0) Lactic Acid Level 2.2 mmol/L (0.4-2.0) Urine Turbidity HAZY (CLEAR) Urine Protein 30 mg/dL (NEG-TRACE) Urine Ketones 40 mg/dL (NEG) Urine Occult Blood MOD (NEG) Urine Leukocyte Esterase LARGE (NEG) Urine RBC 15 /hpf (0-3) Urine WBC Clumps FEW (NONE) Urine Bacteria OCC /hpf (NONE) Urine Mucus FEW /lpf (OCC) Clue Cells (Wet Prep) PRESENT (NONE) Test 02/26/17 20:52 02/27/17 04:08 02/28/17 06:55 02/28/17 07:40 Lactic Acid Level 2.6 mmol/L (0.4-2.0) White Blood Count 13.9 TH/MM3 (4.0-11.0) Red Blood Count 3.78 MIL/MM3 (4.00-5.30) 3.97 MIL/MM3 (4.00-5.30) Hemoglobin 10.2 GM/DL (11.6-15.3) 10.8 GM/DL (11.6-15.3) Hematocrit 30.8 % (35.0-46.0) 32.3 % (35.0-46.0) Neutrophils (%) (Auto) 91.7 % (16.0-70.0) Lymphocytes (%) (Auto) 1.7 % (9.0-44.0) Neutrophils # (Auto) 12.7 TH/MM3 (1.8-7.7) Lymphocytes # (Auto) 0.2 TH/MM3 (1.0-4.8) Random Glucose 116 MG/DL (74-106) Total Protein 5.3 GM/DL (6.4-8.2) Calcium Level 7.3 MG/DL (8.5-10.1) 8.2 MG/DL (8.5-10.1) Potassium Level 3.1 MEQ/L (3.5-5.1) Chloride Level 110 MEQ/L (98-107) 113 MEQ/L (98-107) Carbon Dioxide Level 19.7 MEQ/L (21.0-32.0) Protein Corrected Calcium 8.3 MG/DL (8.5-10.1) Vancomycin Level Trough 2.5 MCG/ML (5.0-10.0) Blood Urea Nitrogen 2 MG/DL (7-18) Creatinine 0.45 MG/DL (0.50-1.00) Imaging Last Impressions Chest X-Ray 02/26/17 1219 Signed Impressions: Service Date/Time: February 12:40 - CONCLUSION: No acute disease. Suraj Murray MD PE at Discharge Gen.: Well-developed, well-nourished young adult female sitting up in bed in no acute distress Lungs: Clear to auscultation bilaterally, no crackles or wheezes Heart: Normal rate, regular rhythm, normal S1/S2, no murmur MSK: No cyanosis or edema Abdomen: Soft, nondistended, nontender Groin: Right groin with stable 2 cm incision, packed with iodoform gauze. Iodoform gauze was removed, and synchronous drainage expressed. Wound was closed with Steri-Strips and covered with dressing. Hospital Course Admitted with sepsis due to groin abscess. I&D performed 02/26, packed with iodoform gauze. Stated on vancomycin, improved clinically. Urine culture obtained which grew only contaminants. Due to sexual activity pelvic exam was performed which showed questionable cervicitis but no cervical motion tenderness. GC/Chlamydia swab was obtained and netative. Wet prep showed clue cells. HIV test performed and negative. Wound Culture ultimately grew MRSA sensitive to Bactrim. Patient stable for discharge with 10 days Bactrim as below and topical flagyl for bacterial vaginosis. Pt Condition on Discharge: Good Discharge Disposition: Discharge Home Discharge Instructions DIET: Follow Instructions for: As Tolerated, No Restrictions Activities you can perform: Regular-No Restrictions Follow up Referrals: PCP Follow-up - 1 Week New Medications: Metronidazole Vaginal Gel (Metronidazole Vaginal Gel) 0.75 % Gel 1 APPL VAGINAL HS for Infection for 7 Days, #1 TUBE 0 Refills Continued Medications: Sulfamethoxazole-Trimethoprim (Bactrim DS) 800-160 Mg Tab 1 TAB PO BID for Infection, #14 TAB 1 Refill (This prescription has been renewed ) Kosta Winston MD R2 Feb 28, 2017 11:52 am
[2017-02-28] MEDS ORDERED: VANCOMYCIN INJ 750 MG in SODIUM CHLOR 0.9% 250 ML INJ 250 ML IV SCH (13:00)
[2017-03-01] MEDS ORDERED: PHARMACY ORDERED LAB ONE (12:45)
== END 2017-02-28 13:43 | disposition home or self-care (01) | DRG 872 ==
LOC: NEPC 12:14 → NEDA 14:58 → N04B 17:02
PROVIDERS: ADMIT Family Medicine; ATTEND Family Medicine
PROC: 0J9C3ZZ Drainage of Pelvic Region Subcutaneous Tissue and Fascia, Percutaneous Approach (ICD-10-PCS; principal; 2017-02-26)
DX: A41.02 Sepsis due to Methicillin resistant Staphylococcus aureus (principal); L02.214 Cutaneous abscess of groin; N76.0 Acute vaginitis; N94.10 Unspecified dyspareunia; Z86.14 Personal history of Methicillin resistant Staphylococcus aureus infection
CPT/HCPCS: 10061; 71010; 80048; 80053; 80202; 81001; 83605; 84155; 84703; 85025; 85027; 86403; 86703; 87040; 87070; 87086; 87147; 87186; 87205; 87210; 87491; 87591; 93005; 96361; 96365; 96375; J0696; J2543; J3370; J7030; J7050

== ENCOUNTER 2017-04-27 19:11 | Emergency (ER) | payer MEDICAID ==
[~2017-04-27] VITALS: Ht 154.9 cm; Wt 43.2 kg
[~2017-04-27 19:11] MED LIST changes: -CORTIS10A RIGHT EAR; +METR0.7512 VAGINAL
[2017-04-27 19:15] VITALS: BP 128/90; PULSE 111; RESP 16; TEMP 97.9; O2SAT 99
[2017-04-27] MEDS ORDERED: CLIN150C14 PO (20:40)
[2017-04-27] MEDS ORDERED: BACT800T5 PO (20:40)
--- NOTE | 2017-04-27 20:41 | PD ---
HPI Chief Complaint: Skin Problem Time Seen by Provider: 20:30 Travel History International Travel<30 days: No Contact w/Intl Traveler<30days: No Traveled to known affect area: No History of Present Illness HPI 22-year-old female complaining of redness swelling and pain on the right side of the nose. Patient states that the symptoms started yesterday. Patient states that she brought on the rash in the face recently. Patient states that she's been scratching on the rash. Patient denies any fever chills. Patient denies any chance of being . Patient's not up-to-date with TD booster. Patient refuses TD booster. PFSH Past Medical History Autoimmune Disease: No Cancer: No Cardiovascular Problems: No Endocrine: No Genitourinary: No Immune Disorder: No Musculoskeletal: No Neurologic: Yes Psychiatric: No Reproductive: No Respiratory: No Integumentary: Yes (MRSA 02/2017) Migraines: Yes ?: Not LMP: 04/20/2017 Past Surgical History Oral Surgery: Yes Other Surgery: Yes Social History Alcohol Use: No Tobacco Use: No Substance Use: No (DENIES) Allergies-Medications (Allergen,Severity, Reaction): Coded Allergies: No Known Allergies (Unverified Allergy, Unknown, 04/27/17) Reported Meds & Prescriptions Reported Meds & Active Scripts Active No Active Prescriptions or Reported Medications Review of Systems General / Constitutional: No: Fever Eyes: No: Visual changes HENT: No: Headaches Cardiovascular: No: Chest Pain or Discomfort Respiratory: No: Shortness of Breath Gastrointestinal: No: Abdominal Pain Genitourinary: No: Dysuria Musculoskeletal: No: Pain Skin: No Rash Neurologic: No: Weakness Psychiatric: No: Depression Endocrine: No: Polydipsia Hematologic/Lymphatic: No: Easy Bruising Physical Exam Narrative GENERAL: Well-nourished, well-developed patient. SKIN: Focused skin assessment warm/dry. HEAD: Normocephalic. EYES: No scleral icterus. No injection or drainage. NECK: Supple, trachea midline. No JVD or lymphadenopathy. CARDIOVASCULAR: Regular rate and rhythm without murmurs, gallops, or rubs. RESPIRATORY: Breath sounds equal bilaterally. No accessory muscle use. GASTROINTESTINAL: Abdomen soft, non-tender, nondistended. MUSCULOSKELETAL: No cyanosis, or edema. BACK: Nontender without obvious deformity. No CVA tenderness. Patient has small area of redness swelling mild tenderness on the right side at the base of the nose. Patient has several pimples on the face and chin. Data Data Last Documented VS Vital Signs Date Time Temp Pulse Resp B/P (MAP) Pulse Ox O2 Delivery O2 Flow Rate FiO2 04/27/17 19:15 97.9 111 16 128/90 (103) 99 Orders Orders Sulfamet-Trimeth Ds 800-160 Mg (Bactrim (04/27/17 20:45) MDM Medical Decision Making Medical Screen Exam Complete: Yes Emergency Medical Condition: Yes Differential Diagnosis Differential diagnosis including folliculitis, cellulitis, abscess. Narrative Course 22-year-old female with redness swelling tenderness right-sided nose. Bactrim DS one tablet by mouth given. Diagnosis Primary Impression: Facial cellulitis Patient Instructions: General Instructions Additional Instructions: Take medications as directed. Follow-up with personal physician. Return if worse. Tylenol or ibuprofen for pain. Med/Other Pt SpecificInfo: Prescription(s) given Scripts Clindamycin (Clindamycin) 150 Mg Cap 300 MG PO TID for Infection, #60 CAP 0 Refills Prov: Juan Francisco Gallo MD 04/27/17 Sulfamethoxazole-Trimethoprim (Bactrim DS) 800-160 Mg Tab 1 TAB PO BID for Infection, #20 TAB 0 Refills Prov: Juan Francisco Gallo MD 04/27/17 Disposition: 01 DISCHARGE HOME Condition: Stable Juan Francisco Gallo MD Apr 27, 2017 20:41
[2017-04-27] MEDS ORDERED: SULFAMETHOXAZOLE-TRIMETHOPRIM DS 800-160 MG TAB PO ONE (20:45)
[2017-04-27] MEDS ORDERED: TETANUS/DIPHTHERIA TOXOID ADULT 0.5 ML VIAL IM ONE (20:45)
== END 2017-04-27 21:17 | disposition home or self-care (01) ==
LOC: NEPD 19:11
DX: L03.211 Cellulitis of face (principal)
CPT/HCPCS: 90471; 90714